=== PATIENT | female | born 1980 | race Caucasian/White ===

== ENCOUNTER 2019-11-17 15:53 | Emergency (ER) | payer OTHER ==
[~2019-11-17] VITALS: Ht 172.7 cm; Wt 77.1 kg
[2019-11-17 16:36] LABS: ABSOLUTE NEUTROPHILS 10.1 thou/uL (1.4-8.2); BASOPHILS 0.3 % (0.0-2.0); EOSINOPHILS 0.3 % (0.0-3.0); HEMATOCRIT 44.2 % (37.0-47.0); HEMOGLOBIN 15.4 gm/dL (12.0-15.0); LYMPHOCYTES 10.7 % (24.0-44.0); MCH 32.5 pg (26.0-34.0); MCHC 34.9 g/dL (28.0-37.0); MCV 93.1 fL (80.0-100.0); MONOCYTES 5.6 % (1.0-8.0); PLATELET COUNT 247 thou/uL (150-400); POLYS 83.1 % (36.0-66.0); RBC 4.75 mil/uL (4.20-5.00); WBC 12.2 thou/uL (4.0-11.0)
[2019-11-17 16:46] LABS: ANION GAP 13 mmol/L (7-16); BUN 16 mg/dL (7-18); CALCIUM 9.2 mg/dL (8.5-10.1); CHLORIDE 94 mmol/L (98-107); CO2 24 mmol/L (21-32); GLUCOSE 133 mg/dL (74-106); POTASSIUM 3.8 mmol/L (3.5-5.1); SODIUM 131 mmol/L (136-145)
[2019-11-17 16:55] LABS: MAGNESIUM 1.6 mg/dL (1.8-2.4); TROPONIN-I <0.06 ng/mL (<0.06)
[2019-11-17 20:02] VITALS: BP 121/72
--- NOTE | 2019-11-18 10:20 | EKG ---
[facility] [place] [address] ELECTROCARDIOGRAM REPORT Name: AMANDA GROSS Room #: DEP [facility]#: [id number] Admission: 11/17/19 Attend Phys: Discharge: 11/17/19 Date of : 76 Report #: [id number] THIS REPORT FOR: cc: Papa Almodovar MD, Jeffrey A. MD Lundgren,Daryl Carrizales MD [facility] ~ THIS REPORT FOR: //name// [facility] ED Test Date: 2019-11-17 Test Time: 15:57:44 Pat Name: AMANDA GROSS Department: Room: Gender: Erp Programmer: [facility] : 1980 Requested By: José Miguel Jay Order Number: [id number] MD: Daryl Wade Measurements Intervals [place] Rate: 92 P: 77 [place]: 138 QRS: 88 QRSD: 87 T: 63 QT: 335 QTc: 415 Interpretive Statements Sinus rhythm No significant abnormality No previous ECG available for comparison Electronically Signed On 11-18-2019 10:18:19 CDT by Daryl Wade [email or web address] <ELECTRONICALLY SIGNED> By: Daryl Wade MD, [facility] 11/18/19 [id number] Daryl Wade MD, [facility] /EPI
== END 2019-11-17 20:03 | disposition home or self-care (01) ==
LOC: ER 15:53
PROVIDERS: Emergency Medicine Emergency Medical Services
DX: R00.2 Palpitations (principal); E83.42 Hypomagnesemia; E03.9 Hypothyroidism, unspecified; Z88.1 Allergy status to other antibiotic agents; Z88.0 Allergy status to penicillin

== ENCOUNTER 2019-11-25 22:21 | Emergency (ER) | payer OTHER ==
[~2019-11-25] VITALS: Ht 172.7 cm; Wt 74.8 kg
[2019-11-25] MEDS ORDERED: SYNTHROID100 MC1 PO (22:38)
[2019-11-25] MEDS ORDERED: MAGNESIUM PO (22:39)
[2019-11-25] MEDS ORDERED: SUPER THERAVIT1 EACH PO (22:39)
[2019-11-25] MEDS ORDERED: OXYBUTYNIN 5 MG5 M2 PO (22:39)
[2019-11-25] MEDS ORDERED: POTASSIUM PO (22:40)
[2019-11-25] MEDS ORDERED: MELATONIN5 MG SUBLING (22:40)
[2019-11-25 22:55] LABS: BASOPHILS 0.3 % (0.0-2.0); EOSINOPHILS 0.5 % (0.0-3.0); HEMATOCRIT 40.4 % (37.0-47.0); HEMOGLOBIN 13.9 gm/dL (12.0-15.0); LYMPHOCYTES 21.8 % (24.0-44.0); MCH 32.1 pg (26.0-34.0); MCHC 34.5 g/dL (28.0-37.0); MCV 92.9 fL (80.0-100.0); MONOCYTES 8.8 % (1.0-8.0); PLATELET COUNT 254 thou/uL (150-400); POLYS 68.6 % (36.0-66.0); RBC 4.34 mil/uL (4.20-5.00); RDW 12.9 % (10.5-14.5); WBC 8.7 thou/uL (4.0-11.0)
[2019-11-25 22:56] LABS: AMP/METHAMP Negative (Negative); BARBITURATES Negative (Negative); BENZODIAZEPINES Negative (Negative); COCAINE Negative (Negative); METHADONE Negative (Negative); OPIATES Negative (Negative); PCP Negative (Negative)
[2019-11-25 23:08] LABS: ANION GAP 10 mmol/L (7-16); BUN 15 mg/dL (7-18); CALCIUM 9.2 mg/dL (8.5-10.1); CHLORIDE 100 mmol/L (98-107); CO2 26 mmol/L (21-32); GLUCOSE 140 mg/dL (74-106); POTASSIUM 3.5 mmol/L (3.5-5.1); SODIUM 136 mmol/L (136-145)
[2019-11-25 23:17] LABS: MAGNESIUM 1.8 mg/dL (1.8-2.4); SGOT 13 U/L (15-37); SGPT 14 U/L (30-65); TOTAL BILIRUBIN 0.6 mg/dL (<0.1-1.0); TOTAL PROTEIN 7.3 g/dL (6.4-8.2); TROPONIN-I <0.06 ng/mL (<0.06)
[2019-11-25 23:54] VITALS: BP 115/75
--- NOTE | 2019-11-26 08:11 | EKG ---
[facility] [place] [address] ELECTROCARDIOGRAM REPORT Name: AMANDA GROSS Room #: DEP [facility]#: [id number] Admission: 11/25/19 Attend Phys: Discharge: 11/26/19 Date of : [birth year] Report #: [id number] THIS REPORT FOR: cc: FAM - Family physician unknown FAM - Family physician unknown Daryl Wade MD [facility] THIS REPORT FOR: //name// [facility] ED Test Date: 2019-11-25 Test Time: 22:34:06 Pat Name: AMANDA GROSS Department: Room: Gender: F Manager Interface: : 1980 Requested By: Andres Hawthorne Order Number: [id number] MD: Daryl Wade Measurements Intervals [place] Rate: 79 P: 65 [place]: 162 QRS: 43 QRSD: 81 T: 44 QT: 361 QTc: 414 Interpretive Statements Sinus rhythm RSR' in V1 or V2, probably normal variant Compared to ECG 11/17/2019 15:57:44 RSR' in V1 or V2 now present Electronically Signed On 11-26-2019 8:09:38 CDT by Daryl Wade [email or web address] <ELECTRONICALLY SIGNED> By: Daryl Wade MD, [facility] 11/26/19 [id number] Daryl Wade MD, [facility] /EPI
== END 2019-11-26 00:07 | disposition home or self-care (01) ==
LOC: ER 22:21
PROVIDERS: Emergency Medicine
DX: R00.2 Palpitations (principal); F41.9 Anxiety disorder, unspecified; R11.0 Nausea; R20.2 Paresthesia of skin; E03.9 Hypothyroidism, unspecified; F17.210 Nicotine dependence, cigarettes, uncomplicated; Z79.899 Other long term (current) drug therapy; Z88.1 Allergy status to other antibiotic agents; Z88.0 Allergy status to penicillin